=== PATIENT | male | born 1985 | race Caucasian/White ===

== ENCOUNTER 2025-08-11 12:07 | Emergency (ER) | payer OTHER, BC ==
[2025-08-11] MEDS: Ketorolac 30 MG/ML SDV IM ONE (14:55)
[2025-08-11] MEDS: Dexamethasone Sod Phos Preservative Free 10 MG/ML Vial IM ONE (14:55)
== END 2025-08-11 15:28 | disposition home or self-care (01) ==
LOC: MW.ED 12:07
DX: M54.30 Sciatica, unspecified side (principal); Z87.891 Personal history of nicotine dependence; Z79.899 Other long term (current) drug therapy
CPT/HCPCS: 96372; 99283; J1100; J1885